=== PATIENT | female | born 1980 | race Caucasian/White ===

== ENCOUNTER → 2016-05-02 | Outpatient (CLI) | payer OTHER ==
--- NOTE | 2016-05-02 17:55 | CONS ---
DATE OF CONSULTATION: PRIMARY CARE PHYSICIAN: Dr. Miles. This patient is 36, obese and she has gained more than 150 pounds over the past 15 to 20 years. She started up by having significant amount of headaches and further investigation regarding the headache has been essentially negative and the treatments have been offered to this patient have been nonsuccessful. At one point there consideration of obstructive sleep apnea, knowing that along with her morning headaches, the patient has been experiencing chronic fatigue, tiredness and sleepiness. She lives with her 2 children. Not sure if she snores; however, at times she is waking up gasping for air. Sleep apnea is obviously a concern. She goes to bed around 10:00 p.m., wakes up at 6:00 a.m. in the morning and she wakes up tired and fatigued and sleepy. 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 She describes her sleep quality as being very poor. She has significantly enlarged tonsils which are almost kissing with Mallampati Class II. She is on oral control pills. She is taking Adipex for weight control. She also is hypothyroid and she is on levothyroxine supplements. PAST MEDICAL HISTORY: Obesity and hypothyroidism. Past surgical history includes cholecystectomy, pilonidal cyst removal and D&C. Drug allergies are not known. Outpatient medication list includes: 1. Synthroid 150 mcg 1 tablet a day. 2. control pill. 3. Adipex 1 tablet a day. 4. Motrin 800 on a p.r.n. basis. SOCIAL HISTORY: Nonsmoker, no history of alcohol, no history of IV drugs. 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 FAMILY HISTORY: Negative for documented sleep apnea, although her parents are suspected to have sleep breathing disorder, aunt has sleep apnea. REVIEW OF SYSTEMS: Twelve-point review of systems was done. Positive findings all mentioned above in history of present illness. BP is 129/77, pulse 80, respirations 16, temperature 98.1, saturation 96% on room air. Weight is 259. Height is 67 inches. Ridgeway score 16. BMI is 40.5. Neck size 16-1/2 inches. GENERAL APPEARANCE: Calm, comfortable. HEENT: Short neck, crowding posterior pharynx. Bilateral tonsillar enlargement, Mallampati class II. LUNGS: Clear to auscultation. HEART: Heart sounds are regular rate and rhythm. Normal S1, S2. ABDOMEN: Soft, nontender. No organomegaly. EXTREMITIES: No edema. No cyanosis or clubbing. IMPRESSION: 1. Obstructive sleep apnea suspected, currently under investigation. The patient has snoring, chronic fatigue and sleepiness with an Ridgeway score of 16. She has bilateral tonsillar enlargement, almost kissing tonsils and she has chronic headaches and fatigue. Sleep apnea is a consideration in this patient. 2. Obesity; body mass index of 40.5. 3. Hypothyroidism. 4. Degenerative arthritis. PLAN: 1. Weight loss. 2. Improve sleep hygiene measures. 3. Proceed with a screening polysomnogram to rule out underlying obstructive sleep apnea.
== END | disposition home or self-care (01) ==
LOC: SLEEP 14:59
PROVIDERS: ATTEND Family Medicine
DX: G47.33 Obstructive sleep apnea (adult) (pediatric) (principal); E66.9 Obesity, unspecified; Z68.41 Body mass index [BMI] 40.0-44.9, adult; E03.9 Hypothyroidism, unspecified; M19.90 Unspecified osteoarthritis, unspecified site
CPT/HCPCS: 99201

== ENCOUNTER → 2016-09-19 | Outpatient (CLI) | payer OTHER ==
--- NOTE | 2016-09-19 23:07 | PN ---
This is a 36-year-old female patient had mild obstructive sleep apnea with an AHI of 11. She was given CPAP therapy at pressure of 8 cm of water. She was unable to tolerate and she was pulling up her AirFit F10 full face mask on multiple occasions throughout the night. Based on that the pressure was lowered down to 7 and despite that, she is having difficulties. Her compliance data is poor. Despite her limited number of hours of use, the patient has had successful treatment while on the CPAP. Her AHI dropped down to one. She has no major air leaks around the mask. The problem could be the high pressure itself and on examination the patient has significant enlargement of her tonsils which can obviously cause an anatomic problem and high-pressure sensation while being on CPAP therapy. The patient however, seems to be committed and she wants to improve her sleep quality. Her current Orwell score is 12. She is averaging around 6 to 7 hours of sleep; however, she remains tired and sleepy and somnolent during the day. BP is 123/74, pulse 84, respirations 16, temperature is 97.6, weight is 254. Appears, calm and comfortable, obese. HEENT: Bilateral tonsillar enlargement. No goiter or neck mass. LUNGS: Clear to auscultation. HEART: Sounds are regular rate and rhythm. Normal S1, S2. ABDOMEN: Soft, nontender. No organomegaly. EXTREMITIES: No edema. No cyanosis, or clubbing. IMPRESSION: 1. Symptomatic obstructive sleep apnea, apnea-hypopnea index of 11, worse during REM. AHI during REM was 37.4. The patient is having difficulty in tolerating his CPAP. 2. Bilateral tonsillar enlargement. 3. ( ) significant anatomic obstruction of the upper airways. 4. Obesity. 5. Hypersomnia. 6. Body mass index of 40. 7. Hypothyroidism. 8. Degenerative arthritis. PLAN: 1. One thought I had is to change this patient to an auto CPAP mode with a pressure minimum of 4, pressure maximum of 7 and continue with AirFit F10 full face mask. 2. Add EPR of 3. 3. Offer the patient ENT evaluation for possible tonsillectomy, yet she declined. 4. Encourage further weight loss. 5. See me back in 4 to 6 weeks' time with the above-mentioned adjustments and I am hoping the compliance will improve and will act accordingly.
== END | disposition home or self-care (01) ==
LOC: SLEEP 15:37
PROVIDERS: ATTEND Internal Medicine Critical Care Medicine
DX: G47.33 Obstructive sleep apnea (adult) (pediatric) (principal); J35.1 Hypertrophy of tonsils; E66.9 Obesity, unspecified; Z68.41 Body mass index [BMI] 40.0-44.9, adult; G47.10 Hypersomnia, unspecified; E03.9 Hypothyroidism, unspecified; M19.90 Unspecified osteoarthritis, unspecified site

== ENCOUNTER → 2019-01-22 | Outpatient (CLI) | payer BC, OTHER ==
[2019-01-22 11:50] LABS: T4, Free (Free Thyroxine) 1.1 ng/dL (0.80-1.80)
== END | disposition home or self-care (01) ==
LOC: LABWHC1 07:00
PROVIDERS: ATTEND Family Medicine
DX: E03.9 Hypothyroidism, unspecified (principal); R60.0 Localized edema
CPT/HCPCS: 36415; 84439; 84443; 85379

== ENCOUNTER → 2020-05-20 | Outpatient (CLI) | payer OTHER ==
--- NOTE | 2020-05-20 15:22 | XR ---
Cervical spine HISTORY: Headaches, M 54.2, posterior neck pain 6 views of the cervical spine There is no evident foraminal encroachment. Cervical vertebral bodies show preserved height, near robe tomic alignment, and bone mineralization. Disc spaces are maintained. Prevertebral soft tissues are n ormal. IMPRESSION: No evident significant degenerative disc disease. Consider cervical MRI as indicated.
--- NOTE | 2020-05-21 13:45 | MM ---
Reason for exam: screening (asymptomatic). Last mammogram was performed 4 years and 3 months ago. History: Family history of breast cancer in paternal aunt. Taking hormonal contraceptives for 12 years. Physical Findings: A clinical breast exam by your physician is recommended on an annual basis and results should be correlated with mammographic findings. MG 3D Screening Mammo W/Cad Bilateral CC and MLO view(s) were taken. Prior study comparison: February 15, 2016, bilateral MG 3d screening mammo w/cad. The breast tissue is heterogeneously dense. This may lower the sensitivity of mammography. There is no discrete abnormality. Benign bilateral axillary lymph nodes redemonstrated. ASSESSMENT: Negative, BI-RAD 1 RECOMMENDATION: Routine screening mammogram of both breasts in 1 year.
== END | disposition home or self-care (01) ==
LOC: RADMAMWWP 14:53
PROVIDERS: ATTEND Family Medicine
DX: Z12.31 Encounter for screening mammogram for malignant neoplasm of breast (principal); M54.2 Cervicalgia
CPT/HCPCS: 72050; 77063; 77067

== ENCOUNTER → 2020-08-27 | Outpatient (CLI) | payer OTHER ==
[2020-08-27 16:57] LABS: Appearance,Urine Cloudy (Clear); Bilirubin,Urine Negative (Negative); Blood,Urine Moderate (Negative); Color,Urine Yellow; Glucose,Urine (UA) Negative (Negative); Ketones,Urine Negative (Negative); Leukocyte Esterase,Urine Trace (Negative); Mucus,Urine Few /hpf; Nitrite,Urine Negative (Negative); PH, Urine 5.5 (5.0-8.0); Protein,Urine Trace (Negative); RBC,Urine 1 /hpf (0-5); Specific Gravity,Urine 1.021 (1.001-1.035); Squamous Epithelial Cell,Urine 5 /hpf (0-4); Urobilinogen,Urine <2.0 mg/dL (<2.0); WBC,Urine 1 /hpf (0-5)
[2020-08-27 23:47] LABS: HCT 41.8 % (37.2-46.3); HGB 13.5 g/dL (12.0-15.0); MCH 28.5 pg (27.0-32.0); MCHC 32.3 g/dL (32.0-37.0); MCV 88.2 fL (80.0-97.0); Mean Platelet Volume 10.9 fL (9.5-12.2); Platelet Count 361 X 10*3/uL (140-440); RBC 4.74 X 10*6/uL (4.10-5.20); WBC 10.53 X 10*3/uL (4.50-10.00)
[2020-08-28 01:49] LABS: African American GFR (CKD) 106.9 (60.0-200.0); Albumin 4.2 g/dL (3.80-4.90); Albumin/Globulin Ratio 1.68 (1.60-3.17); Anion Gap 10.8 mmol/L (4.00-12.00); BUN/Creat Ratio 11.25 Ratio (12.00-20.00); Calcium 9.2 mg/dL (8.7-10.3); Carbon Dioxide 25.2 mmol/L (21.6-31.8); Globulin 2.5 g/dL (1.6-3.3); Non-African American GFR(CKD) 92.2 (60.0-200.0); Total Bilirubin 0.6 mg/dL (0.3-1.2); Total Protein 6.7 g/dL (6.2-8.2)
[2020-08-28 02:03] LABS: Hemoglobin A1C 5.1 % (4.0-6.0)
[2020-08-28 03:36] LABS: HIV 2 AB Non-Reactive (Non-Reactive); HIV AB P24 Non-Reactive (Non-Reactive); HIV P24 AG Non-Reactive (Non-Reactive)
[2020-08-28 04:09] LABS: Erythrocyte Sedimentation Rate 18 mm/Hr (0-20)
[2020-08-30 10:45] LABS: DNA Double-Stranded NEGATIVE (NEGATIVE)
== END | disposition home or self-care (01) ==
LOC: LABWHC1 15:48
PROVIDERS: ATTEND Obstetrics & Gynecology
DX: Z11.3 Encounter for screening for infections with a predominantly sexual mode of transmission (principal); E03.9 Hypothyroidism, unspecified; I10 Essential (primary) hypertension; E78.5 Hyperlipidemia, unspecified; R73.9 Hyperglycemia, unspecified; R60.0 Localized edema
CPT/HCPCS: 36415; 80053; 81001; 82306; 83036; 84439; 84443; 85027; 85379; 85652; 86038; 86225; 86431; 86780; 87390

== ENCOUNTER 2021-04-13 16:39 | Emergency (ER) | payer OTHER ==
[2021-04-13 17:52] VITALS: TEMP 97.8
--- NOTE | 2021-04-13 19:42 | ED ---
URI HPI - General Chief Complaint: Upper Respiratory Infection Stated Complaint: Sore throat/Blurred vision Time Seen by Provider: 04/13/21 18:25 Source: patient Mode of arrival: ambulatory Limitations: no limitations - History of Present Illness Initial Comments: 41-year-old female patient presents to the emergency department today for evaluation of intermittent blurred vision over the last 2 days. Patient has been sick with upper respiratory symptoms for the last 3-4 days. Symptoms include cough, nasal congestion, sore throat, swollen glands. States initially she was taking Sudafed but it wasn't helping so she stopped. States yesterday she had a 45 minute episode where her vision was blurry. Patient states today the episode lasted a little bit longer and she developed a headache afterwards. States her vision is now clear. She denies any other medication use. Denies current headache. Denies any numbness, tingling, weakness to her extremities. Denies any dizziness. Denies history of similar symptoms. Denies any recent head injury. - Related Data Allergies Allergy/AdvReac Type Severity Reaction Status Date / Time No Known Allergies Allergy Verified 04/13/21 17:49 Review of Systems ROS Statement: Those systems with pertinent positive or pertinent negative responses have been documented in the HPI. ROS Other: All systems not noted in ROS Statement are negative. Past Medical History Past Medical History: Thyroid Disorder History of Any Multi-Drug Resistant Organisms: None Reported Past Surgical History: Cholecystectomy Past Psychological History: ADD/ADHD Smoking Status: Never smoker Past Alcohol Use History: None Reported Past Drug Use History: None Reported General Exam Limitations: no limitations General appearance: alert, in no apparent distress, other (This is a well- developed, well-nourished adult female in no acute distress.) Eye exam: Present: normal appearance, PERRL, EOMI. Absent: scleral icterus, conjunctival injection, nystagmus, periorbital swelling ENT exam: Present: normal exam, normal oropharynx, mucous membranes moist Respiratory exam: Present: normal lung sounds bilaterally. Absent: respiratory distress, wheezes, rales, rhonchi, stridor Cardiovascular Exam: Present: regular rate, normal rhythm, normal heart sounds. Absent: systolic murmur, diastolic murmur, rubs, gallop, clicks GI/Abdominal exam: Present: soft, normal bowel sounds. Absent: distended, tenderness, guarding, rebound, rigid Neurological exam: Present: alert, oriented X3, CN II-XII intact Expanded Speech: Present: fluid speech Cranial nerves: EOM's Intact: Normal, Nystagmus: Normal Motor strength exam: RUE: 5, LUE: 5, RLE: 5, LLE: 5 Eye Response: (4) open spontaneously Motor Response: (6) obeys commands Verbal Response: (5) oriented [place] Total: 15 Psychiatric exam: Present: normal affect, normal mood Skin exam: Present: warm, dry, intact, normal color. Absent: rash Course Vital Signs 04/13/21 04/13/21 17:49 19:58 Temperature 97.8 F Pulse Rate 86 80 Respiratory 20 18 Rate Blood Pressure 128/84 141/78 O2 Sat by Pulse 96 99 Oximetry Medical Decision Making - Medical Decision Making 41-year-old female patient presented to the emergency department for evaluation of upper respiratory symptoms and blurred vision. Physical examination is unremarkable. She is neurologically intact with no focal deficits. She tested negative for COVID-19 and strep. Did have an outpatient flu test that was negative. Visual acuity was unremarkable 20/20 and 20/13. I did discuss results with the patient. She'll be discharged to follow up with the primary care physician for recheck she has an appointment on Sunday. Return parameters were discussed in detail. She verbalizes understanding and agrees this plan. My attending is Dr. Ocasio. - Lab Data Lab Results 04/13/21 04/13/21 Range/Units 17:54 19:13 Coronavirus (PCR) Not Detected (Not Detectd) Group A Strep Rapid Negative (Negative) Disposition Clinical Impression: Viral upper respiratory infection Disposition: HOME SELF-CARE Condition: Good Instructions (If sedation given, give patient instructions): Upper Respiratory Infection (ED) Additional Instructions: Increase fluids. Rest. Follow up with her primary care physician for recheck in 1-2 days. Return for any new, worsening, or concerning symptoms. Is patient prescribed a controlled substance at d/c from ED?: No Referrals: Justin Miles DO [Primary Care Provider] - 1-2 days Time of Disposition: 19:42
[2021-04-13 19:59] VITALS: BP 141/78; PULSE 80; RESP 18
== END 2021-04-13 19:58 | disposition home or self-care (01) ==
LOC: EC 16:39
DX: J06.9 Acute upper respiratory infection, unspecified (principal); F90.9 Attention-deficit hyperactivity disorder, unspecified type
CPT/HCPCS: 87081; 87430; 87635; 99283

== ENCOUNTER → 2021-11-08 | Outpatient (CLI) | payer OTHER ==
--- NOTE | 2021-11-09 17:59 | MM ---
Reason for Exam: Screening (asymptomatic). Last mammogram was performed 1 year(s) and 5 month(s) ago. Patient History: Menarche at age 1. First Full-Term at age 24. Currently using Hormonal Contraceptives, for 12 years. Paternal aunt had breast cancer, age 45. Paternal uncle had breast cancer, age 5. Risk Values: Ama 5 year model risk: 0.5%. NCI Lifetime model risk: 8.2%. Prior Study Comparison: 02/15/2016 Bilateral Screening Mammogram, [facility]. 05/20/2020 Bilateral Screening Mammogram, [facility]. Tissue Density: The breast tissue is heterogeneously dense. This may lower the sensitivity of mammography. Findings: Analyzed By CAD. There is no suspicious group of microcalcifications or new suspicious mass in either breast. Benign bilateral axillary lymph nodes redemonstrated. Overall Assessment: Negative, BI-RAD 1 Management: Screening Mammogram of both breasts in 1 year. A clinical breast exam by your physician is recommended on an annual basis and results should be correlated with mammographic findings. Electronically signed and approved by: Antonino Lanza D.O.
== END | disposition home or self-care (01) ==
LOC: RADMAMWWP 16:16
PROVIDERS: ATTEND Family Medicine
DX: Z12.31 Encounter for screening mammogram for malignant neoplasm of breast (principal); Z80.3 Family history of malignant neoplasm of breast
CPT/HCPCS: 77063; 77067

== ENCOUNTER → 2023-01-01 | Outpatient (CLI) | payer OTHER ==
--- NOTE | 2023-01-02 15:42 | MM ---
Reason for Exam: Screening (asymptomatic). Last mammogram was performed 1 year(s) and 2 month(s) ago. Patient History: Menarche at age 10. First Full-Term at age 24. Currently using Hormonal Contraceptives, for 12 years. Paternal aunt had breast cancer, age 45. Paternal uncle had breast cancer, age 50. Last menstrual period: 12/22/2022 Risk Values: Ama 5 year model risk: 0.6%. NCI Lifetime model risk: 9.7%. Prior Study Comparison: 02/15/2016 Bilateral Screening Mammogram, [facility]. 05/20/2020 Bilateral Screening Mammogram, [facility]. 11/08/2021 Bilateral MG 3D screening mammo w/cad, [facility]. Tissue Density: The breast tissue is heterogeneously dense. This may lower the sensitivity of mammography. Findings: Analyzed By CAD. Pattern appears symmetrical and stable. No significant interval change is evident. No suspicious groups of microcalcifications, spiculated or lobular masses, architectural distortion or other secondary signs of malignancy are mammographically apparent. Overall Assessment: Benign, BI-RAD 2 Management: Screening Mammogram of both breasts in 1 year. A negative mammogram report should not preclude additional follow up of suspicious palpable abnormalities. Patient should continue monthly self breast exam. A clinical breast exam by your physician is recommended on an annual basis and results should be correlated with mammographic findings. Electronically signed and approved by: Tiago Muse D.O. [employer]iologis
== END | disposition home or self-care (01) ==
LOC: RADMAMWWP 15:49
PROVIDERS: ATTEND Family Medicine
DX: Z12.31 Encounter for screening mammogram for malignant neoplasm of breast (principal); Z80.3 Family history of malignant neoplasm of breast
CPT/HCPCS: 77063; 77067